=== PATIENT | female | born 1935 | race Caucasian/White ===

== ENCOUNTER 2017-04-14 08:37 | Inpatient (IN) | payer OTHER ==
[~2017-04-14] VITALS: Ht 162.6 cm; Wt 54.4 kg
--- NOTE | ~2017-04-14 | 2DMMODE ---
[facility] [address] [place] [address] 2 D/M-MODE ECHOCARDIOGRAM Name: VINCENT BAILEY Room #: 352-P ADM IN M.R.#: [id number] Admission: 04/14/17 Attend Phys: Fredy Ochoa Discharge: Date of : 37 Date of Service: 04/14/17 1558 Report #: [id number] THIS REPORT FOR: //name// APPROVED REPORT Study performed: 04/14/2017 14:24:43 EXAM: Comprehensive 2D, Doppler, and color-flow Echocardiogram Patient Location: Echo lab Room #: [facility] Status: routine BSA: 1.57 BP: 140/103 mmHg Other Information Study Quality: Adequate Indications CVA/TIA Diabetes Hypertension/HDD Echo Enhancing Agent Indication: Rule out Shunt Agent(s) / Amount(s) Used: Agitated Saline 6 cc 2D Dimensions RVDd: 25.61 mm LVEF(%): 50.09 (>50%) IVSd: 13.68 (7-11mm) LVOT Diam: 14.90 (18-24mm) LVDd: 31.21 mm PWd: 14.15 (7-11mm) Ascending Ao: 25.66 (22-36mm) LVDs: 23.55 (25-40mm) Aortic Root: 22.65 mm IVC: 9.00 mm Granados's LVEF: 50.09 % Volumes Left Atrial Volume (Systole) Single Plane 4CH: 18.93 mL Single Plane 2CH: 22.21 mL LA ESV Index: 15.00 mL/m2 Aortic Valve AoV Peak Lauro.: 4.06 m/s AO Peak Gr.: 66.00 mmHg LVOT Max P.64 mmHg AO Mean Gr.: 36.63 mmHg LVOT Mean P.05 mmHg [facility] [employer] [place] [address] 2 D/M-MODE ECHOCARDIOGRAM Name: VINCENT BAILEY Room #: 352-P ADM IN M.R.#: [id number] Admission: 04/14/17 Attend Phys: Fredy Ochoa Discharge: Date of : 37 Date of Service: 04/14/17 1558 Report #: [id number] AO V2 Mean: 2.85 m/s LVOT Max V: 1.08 m/s AO V2 VTI: 93.73 cm LVOT Mean V: 0.64 m/s JOSE LUIS (VTI): 0.48 cm2 LVOT V1 VTI: 25.96 cm JOSE LUIS Vmax: 0.46 cm2 SV (LVOT): 45.24 mL Mitral Valve E/A Ratio: 0.7 MV Decel. Time: 230.12 ms MV E Max Lauro.: 0.98 m/s MV A Lauro.: 1.32 m/s MV PHT: 66.73 ms IVRT: 79.58 ms Pulmonary Valve PV Peak Lauro.: 1.41 m/s PV Peak Gr.: 7.95 mmHg Pulmonary Vein P Vein S: 0.79 m/s P Vein A: 0.29 m/s P Vein D: 0.38 m/s P Vein A Dur.: 86.5 msec P Vein S/D Ratio: 2.08 Tricuspid Valve TR Peak Lauro.: 2.64 m/s RAP Estimate: 5.00 mmHg TR Peak Gr.: 27.87 mmHg Left Ventricle The left ventricle is normal size. Mild concentric left ventricular hypertrophy. The left ventricular systolic function is normal. The left ventricular ejection fraction is within the normal range. LVEF is 60-65%. Mild diastolic dysfunction is present (impaired relaxation pattern). Right Ventricle The right ventricle is normal size. The right ventricular systolic function is normal. Atria The left atrium size is normal. The right atrium size is normal. Aortic Valve The Aortic valve is sclerotic. No aortic regurgitation is present. There is severe valvular aortic stenosis. Calculated aortic valve area is 0.5 cm2 with maximum pressure gradient of 66 mmHg and mean pressure gradient of 37 mmHg. [facility] [address] [place] [address] 2 D/M-MODE ECHOCARDIOGRAM Name: VINCENT BAILEY Room #: 352-P [facility] IN M.R.#: [id number] Admission: 04/14/17 Attend Phys: Fredy Ochoa Discharge: Date of : 37 Date of Service: 04/14/17 1558 Report #: [id number] Mitral Valve The mitral valve is normal in structure. There is no mitral valve regurgitation noted. No evidence of mitral valve stenosis. Tricuspid Valve The tricuspid valve is normal in structure. There is trace tricuspid regurgitation. The right atrial pressure is estimated at 5 mmHg. PAP is estimated at 33 mmHg. Pulmonic Valve Pulmonic valve is not well visualized. There is no pulmonic valvular regurgitation noted per doppler. Great Vessels The aortic root is normal in size. IVC is normal in size and collapses >50% with inspiration. Pericardium Trace to mild pericardial effusion. No echo indications of pericardial tamponade. <Conclusion> The left ventricle is normal size. Mild concentric left ventricular hypertrophy. LVEF is 60-65%. Mild diastolic dysfunction is present (impaired relaxation pattern). The right ventricular systolic function is normal. The left atrium size is normal. The Aortic valve is sclerotic. There is severe valvular aortic stenosis. Calculated aortic valve area is 0.5 cm2 with maximum pressure gradient of 66 mmHg and mean pressure gradient of 37 mmHg. There is no mitral valve regurgitation noted. There is trace tricuspid regurgitation. The right atrial pressure is estimated at 5 mmHg. PAP is estimated at 33 mmHg. Trace to mild pericardial effusion. No echo indications of pericardial tamponade. <ELECTRONICALLY SIGNED> By: Jovanni Gaviria MD, FACC 04/14/17 1558 1558 1558 Jovanni Gaviria MD, FACC /INF
--- NOTE | ~2017-04-14 | EKG ---
[address] [place] [address] ELECTROCARDIOGRAM REPORT Name: VINCENT BAILEY Room #: 352-P ADM IN M.R.#: [id number] Admission: 04/14/17 Attend Phys: Fredy Bellamy Discharge: Date of : 37 Report #: [id number] THIS REPORT FOR: //name// [facility] ED Test Date: 2017-04-14 Test Time: 08:57:29 Pat Name: VINCENT BAILEY Department: Room: [facility] Gender: F [employer] System Dispatcher: : [id number] Requested By: Familia Guerrier Order Number: [id number] MD: Byron Soria Measurements Intervals [place] Rate: 82 P: 40 WV: 146 QRS: 19 QRSD: 88 T: 69 QT: 376 QTc: 439 Interpretive Statements Sinus rhythm Probable LVH with secondary repol abnrm No previous ECG available for comparison Electronically Signed On 04-14-2017 15:31:28 CDT by Byron Soria [email or web address] <ELECTRONICALLY SIGNED> By: Byron Soria MD 04/14/17 1531 [id number] [id number] Byron Soria MD /SHRUTI
--- NOTE | ~2017-04-14 | HC ---
[facility] [place] [address] [place] [address] CONSULTATION Name: VINCENT BAILEY Room #: 352-P [facility] IN M.R.#: [id number] Admission: 04/14/17 Attend Phys: Fredy Bellamy Discharge: 04/15/17 Date of : 37 Report #: [id number] THIS REPORT FOR: //name// CC: Fernanda Bellamy HISTORY OF PRESENT ILLNESS: The patient is an 81-year-old female patient of Dr. Fernanda Rowe. Apparently lives in a facility, normally she is not able to really give any history, pretty profoundly demented this morning. Dr. Díaz the hospitalist asked me to weigh in on the echo finding of critical or severe aortic stenosis. The mean gradient was not over 40, but 38 with the valve calculated at 0.5 to 0.6 cm2. She has not really had any syncope sort of issues or heart failure. I did speak with the son and said that she has been stable that way, was in [facility] for a week or so for something unrelated. The facility noted that maybe she experience some right leg weakness and arm weakness all think this is somewhat in question. Also, perhaps some slurring of her words, this was very transient and has completely resolved. She remains in sinus rhythm today and our echo did suggest severity yes. No history of any syncope or heart failure issues. PAST MEDICAL HISTORY: Positive for diabetes, osteoporosis, hypertension, the murmur, which would ____ anxiety disorder, DJD. She has never been told that her family is not aware of an aortic valve stenosis. No coronary artery disease. SOCIAL HISTORY: She lives in a facility. No current alcohol or tobacco, was never a tobacco user. She does have a son Tejas who is actually involved in her care, I did speak with. ALLERGIES: No known drug allergies. REVIEW OF SYSTEMS: Really noncontributory. FAMILY HISTORY: Not able to be obtained. LABORATORY WORK: Potassium 4.3, creatinine 0.6, glucose 280, magnesium 1.7, troponin was 0.1, this would not be significant in the setting. BNP was 3300, lipids were favorable with cholesterol 128 and LDL of 65. H and H are 9.9 and 28.8. Ultrasound of the carotids, no hemodynamically significant lesions. Also, has had MRA and MRI, chronic age-related changes, no acute intracranial abnormalities. They also did a [place], mild irregularities involving the intracranial arteries consistent with age. PHYSICAL EXAMINATION: GENERAL: She is in a chair. She does not appear to be in [place] [address] CONSULTATION Name: VINCENT BAILEY Room #: 352-P [facility] IN M.R.#: [id number] Admission: 04/14/17 Attend Phys: Fredy Bellamy Discharge: 04/15/17 Date of : 37 Report #: [id number] really able to give any meaningful history. She states she has no pain or shortness of breath. VITAL SIGNS: Blood pressure 140/60, pulse is 90 and regular. HEENT: Eyes reveal no xanthelasmas. Pharynx is clear. NECK: Actually has preserved upstrokes without JVD or bruits. LUNGS: Clear. CARDIOVASCULAR: Regular rate and rhythm, S1, harsh systolic murmur at the upper right sternal border. There is ejection murmur and the second heart sound is slightly diminished. ABDOMEN: Soft. No HSM or abdominal bruit. EXTREMITIES: Reveal no edema. Distal pulses were intact. NEUROLOGIC: Nonfocal. SKIN: Warm and dry. There is mild lower extremity varicosities, no skin breakdown. NEUROLOGIC: Intact. She will follow up commands to some extent and moving all extremities. Strength seems equal. ASSESSMENT: 1. Severe aortic valve stenosis (probable incidental finding calculated at 0.5 to 0.6 cm2) asymptomatic. 2. Possible transient ischemic attack, resolved with a negative MRI and MRA and negative carotid Doppler. 3. History of diabetes. 4. Degenerative joint disease. 5. Osteoporosis. 6. Hypertension. RECOMMENDATIONS AND PLAN: Baby aspirin has been added by hospitalist for discharge. I would agree with that not really and I do not believe an excellent candidate for open valve replacement or a TAVR in light of the fact of her very small nature, but nor would I ethically think that maybe that would be indicated based on her fairly profound dementia. I have discussed this with her son Tejas. He does agree with this and I have also discussed with Dr. Díaz. We will sign off. I believe she will be discharged to home and would be happy to see her in followup if needed, although I do not think there are great options for this valve at this time. Thank you for asking me to assist in the care of this patient. <ELECTRONICALLY SIGNED> By: Jovanni Gaviria MD, FACC 04/18/17 0912 [id number] [id number] Jovanni Gaviria MD, FACC /nt
[2017-04-14 08:39] VITALS: BP 171/64
[2017-04-14 09:43] LABS: HEMATOCRIT 32.1 % (37.0-47.0); HEMOGLOBIN 11.1 gm/dL (12.0-15.0); MCH 30.3 pg (26.0-34.0); MCHC 34.6 g/dL (28.0-37.0); MCV 87.7 fL (80.0-100.0); RBC 3.66 mil/uL (4.20-5.00); RDW 13.7 % (10.5-14.5); WBC 8.7 thou/uL (4.0-11.0)
[2017-04-14 10:09] LABS: CALCIUM 8.4 mg/dL (8.5-10.1); CREATININE 0.6 mg/dL (0.6-1.0)
[2017-04-14 10:15] LABS: POTASSIUM 2.7 mmol/L (3.5-5.1)
[2017-04-14 10:18] LABS: MAGNESIUM 1.5 mg/dL (1.8-2.4); TROPONIN-I 0.1 ng/mL (<0.06)
[2017-04-14 11:24] VITALS: BP 120/58
[2017-04-14 11:30] LABS: CHOLESTEROL 128 mg/dL (<200); HDL CHOLESTEROL 44 mg/dL (>40); LDL CHOLESTEROL 65 mg/dL (<100); TC:HDL 2.9 Ratio (Not establshd); TRIGLYCERIDE 97 mg/dL (<150); VLDL 19 mg/dL (<40)
[2017-04-14 11:55] VITALS: BP 140/103
[2017-04-14 15:12] VITALS: BP 159/53
[2017-04-14 19:05] VITALS: BP 157/54
[2017-04-14 23:55] VITALS: BP 148/53
[2017-04-15 03:56] VITALS: BP 147/49
[2017-04-15 04:43] LABS: HEMATOCRIT 28.8 % (37.0-47.0); HEMOGLOBIN 9.9 gm/dL (12.0-15.0); MCH 30.4 pg (26.0-34.0); MCHC 34.4 g/dL (28.0-37.0); MCV 88.3 fL (80.0-100.0); RBC 3.26 mil/uL (4.20-5.00); RDW 13.7 % (10.5-14.5); WBC 10.6 thou/uL (4.0-11.0)
[2017-04-15 04:57] LABS: CALCIUM 8.2 mg/dL (8.5-10.1); CREATININE 0.6 mg/dL (0.6-1.0); MAGNESIUM 1.7 mg/dL (1.8-2.4)
[2017-04-15 04:59] LABS: POTASSIUM 4.3 mmol/L (3.5-5.1)
[2017-04-15] MEDS ORDERED: BUSPIRONE HCL10 MG PO (07:15)
[2017-04-15 07:36] VITALS: BP 140/45
[2017-04-15] MEDS ORDERED: ARICEPT 5 MG TAB5 MG PO (07:53)
[2017-04-15] MEDS ORDERED: METOPROLOL TART75 MG PO (07:54)
[2017-04-15] MEDS ORDERED: TYLENOL325 MG PO ×2 (07:55→07:56)
[2017-04-15] MEDS ORDERED: REMERON15 MG PO (07:55)
[2017-04-15] MEDS ORDERED: NOVOLOG100 UNIT/1 SUBQ (07:56)
[2017-04-15] MEDS ORDERED: ASPIR 8181 MG PO (07:58)
[2017-04-15] MEDS ORDERED: SERTRALINE HCL50 MG PO (07:59)
[2017-04-15] MEDS ORDERED: NORVASC10 MG PO (07:59)
[2017-04-15] MEDS ORDERED: ATIVAN0.5 MG PO (08:00)
[2017-04-15] MEDS ORDERED: SEROQUEL 25 MG25 M1 PO (08:00)
[2017-04-15] MEDS ORDERED: ZOCOR20 MG PO (08:01)
[2017-04-15] MEDS ORDERED: LOPERAMIDE2 MG PO (08:04)
[2017-04-15] MEDS ORDERED: LEVEMIR SUBQ (08:07)
[2017-04-15] MEDS ORDERED: ASPIRIN325 PO (09:14)
[2017-04-15] MEDS ORDERED: CEFUROXIME500 MG PO (09:14)
[2017-04-15 11:03] VITALS: BP 140/45
[2017-04-15 11:34] VITALS: BP 144/103
== END 2017-04-15 14:04 | disposition short-term general hospital (02) | DRG 178 ==
LOC: ER 08:37 → 3W 10:48 → EROBS 10:48 → 3W 11:33
PROVIDERS: Emergency Medicine; Hospitalist
DX: J15.6 Pneumonia due to other Gram-negative bacteria (principal); G45.9 Transient cerebral ischemic attack, unspecified; E11.9 Type 2 diabetes mellitus without complications; M81.0 Age-related osteoporosis without current pathological fracture; I10 Essential (primary) hypertension; F41.9 Anxiety disorder, unspecified; E87.6 Hypokalemia; I35.0 Nonrheumatic aortic (valve) stenosis; M19.90 Unspecified osteoarthritis, unspecified site; Z28.21 Immunization not carried out because of patient refusal
CPT/HCPCS: 10779